=== PATIENT | female | born 1985 | race Caucasian/White ===

== ENCOUNTER 2021-10-19 10:49 | Emergency (ER) | payer BC, OTHER ==
--- OUTSIDE RECORDS SUMMARY | 2021-10-19 10:51 | XMS REPORT | Continuity of Care Document ---
:1985 Author Organization [facility] t Address [address] [place] [address] Care Team Providers Name Role Phone Diane Page Attending Clinician Unavailable Karly Macdonald Attending Clinician Unavailable Problems This patient has no known problems. Allergies, Adverse Reactions, Alerts Allergy Allergy Status Severity Reaction(s) Onset Inactive Treating Comm ents Source Name Type Date Date Clinician Latex Adverse Active Info Not Common Reaction Available [facility] Naproxen Adverse Active Info Not Commo n Reaction Available [facility] Imodium Adverse Active Info Not Common A-D Reaction Available [facility] Medications Ordered Filled Start Stop Current Ordering Indication Dosage Frequency Signature Comments Components Source Medication Medication Date Date Medication? Clinician (SIG) Name Name Alprazolam Alprazolam Yes Alber 1 tablet Common 9-17 Page as needed Spirit 00:00: for SEVERE - CHI [address] [facility] Pennsaid Pennsaid Yes Alber 2 pumps Co mmon [facility] ProAir HFA ProAir HFA Yes Alber 2 puffs as Common Page needed [facility] Duloxetine Duloxetine Yes Alber 1 capsule Common HCl HCl [facility] Topiramate Topiramate Yes Alber 1 tablet Common Page [facility] Procedures This patient has no known procedures. Encounters Start End Encounter Admission Attending Care Care Encounter Source Date/Time Date/Time Type Type Clinicians Facility Department ID 2021-10-02 Outpatient Page, STLMLC STLMLC [id number] Common 16:54:00 Alber [facility] 2021-09-14 Outpatient Page, STLMLC STLMLC [id number] Common 15:32:02 Alber [facility] 2021-09-13 Outpatient Page, STLMLC STLMLC [id number] Common 08:45:02 Alber [facility] 2021-06-14 Outpatient Page, STLMLC STLMLC [id number] Common 14:01:42 Alber [id number] [facility] 2021-06-14 Outpatient Page, STLMLC STLMLC [id number] Common 12:24:42 Alber [id number] [facility] 2021-06-14 Outpatient Page, STLMLC STLMLC [id number] Common 12:12:23 Alber [id number] [facility] 2021-06-14 Outpatient Page, STLMLC STLMLC [id number] Common 11:59:05 Alber [id number] [facility] 2021-06-14 Outpatient Page, STLMLC STLMLC [id number] Common 11:57:53 Alber [id number] [facility] 2021-06-14 Outpatient Macdonald, Na STLMLC STLMLC [id number] Common 11:10:19 [id number] [facility] 2021-10-02 2021-10-02 ambulatory STLMLC STLMLC [id number] Common 00:00:00 00:00:00 [facility] 2021-10-02 2021-10-02 ambulatory STLMLC STLMLC [id number] Common 00:00:00 00:00:00 [facility] 2021-09-13 2021-09-13 ambulatory STLMLC STLMLC [id number] Common 00:00:00 00:00:00 [facility] 2021-09-13 2021-09-13 ambulatory STLMLC STLMLC [id number] Common 00:00:00 00:00:00 [facility] 2021-03-07 2021-03-07 Outpatient STLMLC STLMLC [id number] Common 00:00:00 00:00:00 [facility] 2021-01-25 2021-01-25 Outpatient STLMLC STLMLC [id number] Common 00:00:00 00:00:00 [facility] 2021-01-25 2021-01-25 Outpatient STLMLC STLMLC [id number] Common 00:00:00 00:00:00 [facility] 2020-12-09 2020-12-09 Outpatient STLMLC STLMLC [id number] Common 00:00:00 00:00:00 [facility] 2020-12-06 2020-12-06 Outpatient STLMLC STLMLC [id number] Common 00:00:00 00:00:00 [facility] 2020-09-12 2020-09-12 Outpatient STLMLC STLMLC [id number] Common 00:00:00 00:00:00 [facility] 2020-08-08 2020-08-08 Outpatient STLMLC STLMLC [id number] Common 00:00:00 00:00:00 [facility] 2020-08-08 2020-08-08 Outpatient STLMLC STLMLC [id number] Common 00:00:00 00:00:00 [facility] 2020-07-28 2020-07-28 Outpatient STLMLC STLMLC [id number] Common 00:00:00 00:00:00 [facility] 2020-07-28 2020-07-28 Outpatient STLMLC STLMLC [id number] Common 00:00:00 00:00:00 [facility] 2020-06-14 2020-06-14 Outpatient STLMLC STLMLC [id number] Common 00:00:00 00:00:00 [facility] 2020-06-13 2020-06-13 Outpatient STLMLC STLMLC [id number] Common 00:00:00 00:00:00 [facility] 2020-04-26 2020-04-26 Outpatient STLMLC STLMLC [id number] Common 00:00:00 00:00:00 [facility] 2020-04-26 2020-04-26 Outpatient STLMLC STLMLC [id number] Common 00:00:00 00:00:00 [facility] 2020-04-08 2020-04-08 Outpatient STLMLC STLMLC [id number] Common 00:00:00 00:00:00 [facility] 2020-04-08 2020-04-08 Outpatient STLMLC STLMLC [id number] Common 00:00:00 00:00:00 [facility] 2020-03-17 2020-03-17 Outpatient STLMLC STLMLC [id number] Common 00:00:00 00:00:00 [facility] 2020-03-15 2020-03-15 Outpatient STLMLC STLMLC [id number] Common 00:00:00 00:00:00 [facility] 2020-03-11 2020-03-11 Outpatient STLMLC STLMLC [id number] Common 00:00:00 00:00:00 [facility] 2020-03-10 2020-03-10 Outpatient STLMLC STLMLC [id number] Common 00:00:00 00:00:00 [facility] 2020-03-10 2020-03-10 Outpatient STLMLC STLMLC [id number] Common 00:00:00 00:00:00 [facility] 2020-02-04 2020-02-04 [facility] [id number] Common 15:20:00 15:20:[address] [facility] 2019-12-29 2019-12-29 [facility] [id number] Common 13:00:00 13:00:[address] [facility] 2019-11-24 2019-11-24 [facility] [id number] Common 09:00:00 09:00:[address] [facility] 2019-09-30 2019-09-30 [facility] [id number] Common 15:43:00 15:43:[address] [facility] 2019-07-21 2019-07-21 [facility] [id number] Common 13:17:00 13:17:[address] [facility] 2019-07-21 2019-07-21 [facility] [id number] Common 10:00:00 10:00:[address] [facility] 2019-07-15 2019-07-15 [facility] [id number] Common 11:00:00 11:00:[address] [facility] Results This patient has no known results.
[2021-10-19 11:33] LABS: Hematocrit 41.5 % (36.0-45.0); Lymphocytes % 18.6 % (15.3-44.8); RBC Red Blood Cell Count 5.07 M/uL (3.86-4.86)
[2021-10-19 11:40] LABS: Protime INR 1.09
[2021-10-19 12:00] LABS: Blood Morphology Comment NOT SEEN (NOT SEEN); Platelet Estimate ADEQ; White Blood Cell Scan OK (OK)
[2021-10-19 12:12] LABS: Potassium 3.8 mmol/L (3.5-5.1)
--- NOTE | 2021-10-19 12:28 | RAD REPORT ---
EXAM DESCRIPTION: US - UPPER EXTREMITY VENOUS UNILATE - 10/19/2021 12:03 pm CLINICAL HISTORY: Pain COMPARISON: No comparisons FINDINGS: Color Doppler, grayscale, and spectral analysis was performed. Positive for thrombus in the right axillary vein, brachial vein, and basilic vein. The vessels are no ncompressible, lack color flow, and have echogenic thrombus. The right IJ is patent. The right subcla vian vein is patent. The right cephalic vein is patent. IMPRESSION: Positive for venous thrombosis in the right upper extremity including the axillary vein, brachial vein, and basilic veins. The information strategist relayed preliminary results to the ED at time of ultrasound.
--- NOTE | 2021-10-19 12:43 | ER ---
Nurse's Notes [facility] Name: Eunice Keating Age: 36 yrs Sex: Female : 1985 Arrival Date: 10/19/2021 Time: 10:50 Bed 19 Private MD: Alber Page Diagnosis: Acute embolism and thrombosis of deep veins of right upper extremity Presentation: 10/19 10:54 Chief complaint: Patient states: my RIGHT arm. i noticed this Saturday. it didn't get tw2 better. i had one before and i took aspirin but it is not helping. i feel it is swollen. Coronavirus screen: At this time, the client does not indicate any symptoms associated with coronavirus-19. Ebola Screen: Patient denies travel to an Ebola-affected area in the 21 days before illness onset. Initial Sepsis Screen: Does the patient meet any 2 criteria? No. Patient's initial sepsis screen is negative. Does the patient have a suspected source of infection? No. Patient's initial sepsis screen is negative. Risk Assessment: Do you want to hurt yourself or someone else? Patient reports no desire to harm self or others. Onset of symptoms was October 19, 2021. 10:54 Method Of Arrival: Ambulatory tw2 10:54 Acuity: MORRO 3 tw2 Triage Assessment: 10:55 General: Appears in no apparent distress. Behavior is anxious. Pain: Complains of pain tw2 in right arm. Neuro: Level of Consciousness is awake, alert, obeys commands, Oriented to person, place, time, situation. Musculoskeletal: Range of motion:. 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 - Social history:: Smoking status: Patient denies any tobacco usage or history of. Screenin:09 Abuse screen: Denies threats or abuse. Nutritional screening: No deficits noted. tw2 Tuberculosis screening: No symptoms or risk factors identified. Fall Risk None identified. Assessment: 11:08 General: Appears in no apparent distress. comfortable, Behavior is calm, cooperative, jd3 appropriate for age. Pain: Complains of pain in right arm Quality of pain is described as crampy, tender. Neuro: Ruiz Agitation-Sedation Scale (RASS): 0 - Alert and Calm Level of Consciousness is awake, alert, obeys commands, Oriented to person, place, time, situation. Cardiovascular: Denies chest pain, Capillary refill < 3 seconds Patient's skin is warm and dry. Respiratory: Airway is patent Respiratory effort is even, unlabored, Respiratory pattern is regular, symmetrical, Denies cough, shortness of breath. GI: No signs and/or symptoms were reported involving the gastrointestinal system. : No signs and/or symptoms were reported regarding the genitourinary system. EENT: No signs and/or symptoms were reported regarding the EENT system. Derm: Skin is intact, Skin is dry, Skin is normal, Skin temperature is warm. Musculoskeletal: Circulation, motion, and sensation intact. Range of motion: intact in all extremities, Swelling present in right bicep. 12:44 Reassessment: Patient appears in no apparent distress at this time. Patient and/or jd3 family updated on plan of care and expected duration. Pain level reassessed. Patient is alert, oriented x 3, equal unlabored respirations, skin warm/dry/pink. Vital Signs: 10:54 BP 128 / 74; Pulse 83; Resp 17; Temp 98.2(TE); Pulse Ox 98% on R/A; Weight 90.26 kg tw2 (R); Height 5 ft. 10 in. (177.80 cm); Pain 5/10; 12:44 BP 131 / 76; Pulse 80; Resp 16 S; Pulse Ox 99% on R/A; jd3 10:54 Body Mass Index 28.55 (90.26 kg, 177.80 cm) tw2 ED Course: 10:50 Patient arrived in ED. am2 10:50 Alber Page DO is Private Physician. am2 10:53 [facility]aine Lizarraga FNP [facility] jh7 10:53 Leandro Richards MD is Attending Physician. 7 10:55 Triage completed. tw2 10:58 Arm band placed on. tw2 11:08 Robert Limon, RN is Primary Nurse. jd3 11:09 Placed in gown. Bed in low position. tw2 11:27 Initial lab(s) drawn, by me, sent to lab. Missed attempt(s): 22 gauge in left hand. jd3 Bleeding controlled, band aid applied, catheter tip intact. 11:50 Inserted saline lock: 20 gauge in left forearm, using aseptic technique. Blood jd3 collected. placed by [facility]. 12:05 UPPER EXTREMITY VENOUS UNILATE In Process Unspecified. EDMS 12:42 Alber Page DO is Referral Physician. jh7 12:44 No provider procedures requiring assistance completed. jd3 12:58 IV discontinued, intact, bleeding controlled, No redness/swelling at site. Pressure jd3 dressing applied. Administered Medications: No medications were administered Medication: 11:09 VIS not applicable for this client. jd3 Outcome: 12:43 Discharge ordered by MD. jh7 12:58 Discharged to home ambulatory. jd3 12:58 Condition: stable 12:58 Discharge instructions given to patient, Instructed on discharge instructions, follow up and referral plans. medication usage, Demonstrated understanding of instructions, follow-up care, medications, Prescriptions given X 1. 12:58 Patient left the ED. jd3 Signatures: Dispatcher [employer] EDTere Mayo, RN RN tw2 Trudy Rowe 2 Robert Limon, RN RN jd3 Raine Lizarraga, SWEET DOUGH MIXER SWEET DOUGH MIXER 7 Corrections: (The following items were deleted from the chart) 12:58 12:44 BP 125 / 76; Pulse 82bpm; Resp 16bpm; Spontaneous; Pulse Ox 99% RA; jd3 jd3
--- NOTE | 2021-10-19 12:43 | EDPHYS ---
Physician Documentation [facility] Name: Eunice Keating Age: 36 yrs Sex: Female : 1985 Arrival Date: 10/19/2021 Time: 10:50 Bed 19 Private MD: Cam[facility] ED Physician Leandro Richards HPI: 10/19 11:00 This 36 yrs old Female presents to ER via Ambulatory with complaints of Arm Pain - jh7 possible blood clot. 11:00 The patient or guardian complains of pain, swelling, tenderness. The complaints affect jh7 the right bicep. Onset: The symptoms/episode began/occurred 1 week(s) ago. Patient reports right upper arm pain and swelling for the past week. States she has a history of a blood clot in that same arm, that resolved after taking aspirin daily.. 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 - Social history:: Smoking status: Patient denies any tobacco usage or history of. ROS: 11:00 Constitutional: Negative for fever, chills, and weight loss, Neck: Negative for injury, jh7 pain, and swelling, Cardiovascular: Negative for chest pain, palpitations, and edema, Respiratory: Negative for shortness of breath, cough, wheezing, and pleuritic chest pain, Abdomen/GI: Negative for abdominal pain, nausea, vomiting, diarrhea, and constipation, Back: Negative for injury and pain, Skin: Negative for injury, rash, and discoloration. 11:00 MS/extremity: Positive for pain, swelling, tenderness, Negative for injury or acute deformity, decreased range of motion, erythema. 11:00 All other systems are negative. Exam: 11:00 Constitutional: This is a well developed, well nourished patient who is awake, alert, jh7 and in no acute distress. Neck: Trachea midline, no thyromegaly or masses palpated, and no cervical lymphadenopathy. Supple, full range of motion without nuchal rigidity, or vertebral point tenderness. No Meningismus. Cardiovascular: Regular rate and rhythm with a normal S1 and S2. No gallops, murmurs, or rubs. Normal PMI, no JVD. No pulse deficits. Respiratory: Lungs have equal breath sounds bilaterally, clear to auscultation and percussion. No rales, rhonchi or wheezes noted. No increased work of breathing, no retractions or nasal flaring. Abdomen/GI: Soft, non-tender, with normal bowel sounds. No distension or tympany. No guarding or rebound. No evidence of tenderness throughout. Back: No spinal tenderness. No costovertebral tenderness. Full range of motion. Skin: Warm, dry with normal turgor. Normal color with no rashes, no lesions, and no evidence of cellulitis. Neuro: Awake and alert, GCS 15, oriented to person, place, time, and situation. Motor strength 5/5 in all extremities. Sensory grossly intact. Normal gait. 11:00 Musculoskeletal/extremity: ROM: no acute changes, Circulation is intact in all extremities. the right arm Pain, tenderness to palpation, and induration over 2 veins in the right bicep area.. Vital Signs: 10:54 BP 128 / 74; Pulse 83; Resp 17; Temp 98.2(TE); Pulse Ox 98% on R/A; Weight 90.26 kg tw2 (R); Height 5 ft. 10 in. (177.80 cm); Pain 5/10; 12:44 BP 131 / 76; Pulse 80; Resp 16 S; Pulse Ox 99% on R/A; jd3 10:54 Body Mass Index 28.55 (90.26 kg, 177.80 cm) tw2 MDM: 10:59 Patient medically screened. [facility] 13:15 Differential diagnosis: contusion, DVT, superficial thrombophlebitis. Data reviewed: [facility] vital signs, nurses notes, lab test result(s), radiologic studies, ultrasound. Data interpreted: Pulse oximetry: is 99 %. Interpretation: normal. Counseling: I had a detailed discussion with the patient and/or guardian regarding: the historical points, exam findings, and any diagnostic results supporting the discharge/admit diagnosis, the need for outpatient follow up, for definitive care, to return to the emergency department if symptoms worsen or persist or if there are any questions or concerns that arise at home. ED course: Inform the patient that she did have a DVT, and will be started on Eliquis. Thoroughly discussed signs and symptoms of when to return to the ER such as increased swelling, chest pain, severe pain, shortness of breath, or any other symptoms. The patient stated she would follow-up with her PCP. She remained hemodynamically and clinically stable throughout her ER visit.. 10/19 11:10 Order name: CBC with Diff; Complete Time: 12:25 [facility] 10/19 11:10 Order name: BMP; Complete Time: 12:25 [facility] 10/19 11:10 Order name: Extremity Venous Uni Ltd US [facility] 10/19 11:10 Order name: PT-INR; Complete Time: 11:54 [facility] 10/19 11:13 Order name: UPPER EXTREMITY VENOUS UNILATE; Complete Time: 15:27 [facility] 10/19 11:36 Order name: CBC Smear Scan; Complete Time: 12:25 [facility] 10/19 11:37 Order name: Labs - recollect needed: recollect c7; Complete Time: 11:50 bd Administered Medications: No medications were administered Disposition Summary: 10/19/21 12:43 Discharge Ordered Location: Home [facility] Problem: new [facility] Symptoms: are unchanged [facility] Condition: Stable [facility] Diagnosis - Acute embolism and thrombosis of deep veins of right upper extremity [facility] Followup: [facility] - With: Alber Page, - When: 2 - 3 days - Reason: Recheck today's complaints Discharge Instructions: - Discharge Summary Sheet 2 - Deep Vein Thrombosis [facility] - Bleeding Precautions When on Anticoagulant Therapy, Adult [facility] - Venous Thromboembolism Prevention [facility] Forms: - Work release form tw2 - Medication Reconciliation Form 7 - Thank You Letter 7 - Prescription Opioid Use [facility] Prescriptions: - Eliquis DVT-PE Treat 30D Start 5 mg (74 tabs) Oral tablets,dose pack - take 1 tablet by ORAL route 2 times per day; 1 packet; Refills: 0, Product [facility] Selection Permitted Signatures: Dispatcher [facility] ED[facility]ie Bird Tara, RN RN tw2 Hadash, Raine, WIND FARM OPERATIONS MANAGER W[employer] FARM OPERATIONS MANAGER jh7
[2021-10-19 13:07] VITALS: TEMP 98.2
[2021-10-19 13:09] VITALS: BP 131/76; O2SAT 99
== END 2021-10-19 12:58 | disposition home or self-care (01) ==
LOC: ER 10:49
DX: I82.621 Acute embolism and thrombosis of deep veins of right upper extremity (principal); Z91.018 Allergy to other foods; Z91.030 Bee allergy status; Z91.040 Latex allergy status; Z91.048 Other nonmedicinal substance allergy status
CPT/HCPCS: 36415; 80048; 85025; 85610; 93971; 99284